=== PATIENT | female | born 1955 | race Caucasian/White ===

== ENCOUNTER 2017-06-18 17:41 | Inpatient (IN) | payer OTHER ==
[~2017-06-18] VITALS: Ht 162.6 cm; Wt 155.9 kg
[~2017-06-18 17:41] MED LIST: ACTOS45 MG PO; CEPHALEXIN500 M1 PO; CLEOCIN300 MG PO; DIOVAN HCT 31 TABLE1 PO; FOLIC ACID1 MG PO; GLIPIZIDE XL5 MG PO; LIPITOR80 MG PO; LISINOPRIL40 MG PO; METFORMIN HCL850 MG PO; NORVASC10 MG PO; NOVOLIN N100 UNIT/1 SC; NOVOLIN,HU100 UNITS/ SC; PRAVASTATIN PO; PRINIVIL40 MG PO; TYLENOL EXTRA500 MG PO; Tylenol Extra Streng PO; VANCOMYCIN100 MG/M1 IV
[2017-06-18 18:10] LABS: POINT-OF-CARE METER ID UU14100415
[2017-06-18 18:51] LABS: HEMATOCRIT 42.2 % (36.0-46.0); MCH 26.2 PG (29.0-34.0); MCV 84.4 FL (83-99); MEAN PLAT.VOLUME 10.8 uM^3 (9.5-12.4); PLATELET COUNT 172 K/uL (156-360); RBC DIS.WIDTH-CV 14.6 % (11.8-14.6); WHITE BLOOD COUNT 23.7 K/uL (4.1-10.2)
[2017-06-18 19:02] LABS: CHLORIDE 100 mEq/L (99-109); POTASSIUM 4.6 mEq/L (3.7-5.4); SODIUM 131 mEq/L (136-147)
[2017-06-18 19:03] LABS: GLUCOSE 230 mg/dL (70-99)
[2017-06-18 19:05] LABS: ANION GAP 11 MEQ/L (2-14)
[2017-06-18 19:07] LABS: GFR ESTIMATE (CALCULATED) 30 mL/min/
[2017-06-18 19:08] LABS: UREA NITROGEN (BUN) 34 mg/dL (9-23)
[2017-06-18 19:51] LABS: ADD MIUA? YES; BILIRUBIN NEGATIVE; BLOOD MODERATE; COLOR YELLOW ((YELLOW)); GLUCOSE (STRIP) 50; KETONES NEGATIVE; LEUKOCYTES NEGATIVE; NITRITE NEGATIVE; PROTEIN (STRIP) >=500; SPECIFIC GRAVITY 1.016 (1.000-1.030); UROBILINOGEN 0.2 MG/DL (0.2-1.0)
[2017-06-18 20:46] LABS: BACTERIA RARE /HPF; CASTS PRESENT /LPF; CRYSTALS PRESENT; EPITHELIAL CELLS 1+ /HPF; MUCUS NONE SEEN /LPF; RED BLOOD CELLS RARE /HPF (0-5); WHITE BLOOD CELLS RARE /HPF (0-5)
[2017-06-18 20:47] LABS: AMORPHOUS URATES CRYSTALS 3+; HYALINE CASTS 0-5 /LPF
[2017-06-18] MEDS ORDERED: GLUCOTROL XL5 MG PO (21:05)
[2017-06-19 00:26] VITALS: BP 175/74
[2017-06-19 02:58] LABS: METH RESISTANT S AUREUS PCR NEGATIVE (NEGATIVE)
[2017-06-19 03:06] LABS: PROBE CHECK PASS; SPECIMEN PROCESSING CONTROL PASS
[2017-06-19 04:03] VITALS: BP 135/63
[2017-06-19 06:23] LABS: POINT-OF-CARE METER ID UU14208750
[2017-06-19 07:06] LABS: HEMATOCRIT 31.2 % (36.0-46.0); MCH 26.6 PG (29.0-34.0); MCHC 31.1 G/DL (30.0-36.0); MCV 85.5 FL (83-99); MEAN PLAT.VOLUME 10.7 uM^3 (9.5-12.4); PLATELET COUNT 147 K/uL (156-360); RBC DIS.WIDTH-CV 14.8 % (11.8-14.6); RBC DIS.WIDTH-SD 46.2 % (39-53); WHITE BLOOD COUNT 19.5 K/uL (4.1-10.2)
[2017-06-19 07:08] LABS: RED BLOOD COUNT 3.65 M/uL (3.80-5.20)
[2017-06-19 07:27] LABS: ALKALINE PHOSPHATASE 79 IU/L (3-129); ANION GAP 8 MEQ/L (2-14); CHLORIDE 105 MEQ/L (99-109); GFR ESTIMATE (CALCULATED) 37 mL/min/; GLUCOSE 150 mg/dL (70-99); POTASSIUM 4.2 MEQ/L (3.7-5.4); SAMPLE HEMOLYSIS CHECK 0; SAMPLE ICTERIC CHECK 0; SAMPLE LIPEMIA CHECK 0; SODIUM 134 MEQ/L (136-147); TOTAL BILIRUBIN 0.6 MG/DL (0.0-1.0); UREA NITROGEN (BUN) 33 mg/dL (9-23)
[2017-06-19 07:56] VITALS: BP 165/70
[2017-06-19 11:39] VITALS: BP 104/51
[2017-06-19 12:06] LABS: POINT-OF-CARE METER ID UU14314084
[2017-06-19 19:00] VITALS: BP 148/65
[2017-06-19 22:00] LABS: POINT-OF-CARE METER ID UU14208750
[2017-06-19 23:35] LABS: POINT-OF-CARE METER ID UU14208750
[2017-06-19 23:45] VITALS: BP 128/60
[2017-06-20 00:34] LABS: POINT-OF-CARE METER ID UU14208750
[2017-06-20 06:49] LABS: POINT-OF-CARE METER ID UU14208750
[2017-06-20 07:51] LABS: HEMATOCRIT 27.9 % (36.0-46.0); MCH 26.2 PG (29.0-34.0); MCHC 30.5 G/DL (30.0-36.0); MCV 86.1 FL (83-99); MEAN PLAT.VOLUME 10.4 uM^3 (9.5-12.4); PLATELET COUNT 129 K/uL (156-360); RBC DIS.WIDTH-CV 14.9 % (11.8-14.6); RBC DIS.WIDTH-SD 47.3 % (39-53); RED BLOOD COUNT 3.24 M/uL (3.80-5.20); WHITE BLOOD COUNT 11.3 K/uL (4.1-10.2)
[2017-06-20 07:52] LABS: POINT-OF-CARE METER ID UU14208750
[2017-06-20 08:22] LABS: ALKALINE PHOSPHATASE 77 IU/L (3-129); ANION GAP 8 MEQ/L (2-14); CHLORIDE 103 MEQ/L (99-109); GFR ESTIMATE (CALCULATED) 35 mL/min/; POTASSIUM 3.8 MEQ/L (3.7-5.4); SAMPLE HEMOLYSIS CHECK 0; SAMPLE ICTERIC CHECK 0; SAMPLE LIPEMIA CHECK 0; SODIUM 132 MEQ/L (136-147); TOTAL BILIRUBIN 0.5 MG/DL (0.0-1.0); UREA NITROGEN (BUN) 32 mg/dL (9-23)
[2017-06-20 08:26] LABS: GLUCOSE 82 mg/dL (70-99)
[2017-06-20 09:02] VITALS: BP 130/76
[2017-06-20 09:38] LABS: POINT-OF-CARE METER ID UU14208750
[2017-06-20 11:26] LABS: POINT-OF-CARE METER ID UU14162508
[2017-06-20 15:55] VITALS: BP 132/72
[2017-06-20 16:28] LABS: POINT-OF-CARE METER ID UU14162508
[2017-06-20 21:40] LABS: POINT-OF-CARE METER ID UU14208750
[2017-06-20 23:45] VITALS: BP 135/70
[2017-06-21 05:46] LABS: CHLORIDE 109 mEq/L (99-109); POTASSIUM 4.3 mEq/L (3.7-5.4); SODIUM 135 mEq/L (136-147)
[2017-06-21 05:50] LABS: ANION GAP 7 MEQ/L (2-14); GLUCOSE 133 mg/dL (70-99); TOTAL BILIRUBIN 0.4 mg/dL (0.0-1.0)
[2017-06-21 05:52] LABS: ALKALINE PHOSPHATASE 107 IU/L (3-129); GFR ESTIMATE (CALCULATED) 44 mL/min/
[2017-06-21 05:53] LABS: UREA NITROGEN (BUN) 28 mg/dL (9-23)
[2017-06-21 05:57] LABS: HEMATOCRIT 28.9 % (36.0-46.0); MCH 26.5 PG (29.0-34.0); MCHC 31.1 G/DL (30.0-36.0); MCV 85.3 FL (83-99); MEAN PLAT.VOLUME 11.1 uM^3 (9.5-12.4); PLATELET COUNT 133 K/uL (156-360); RBC DIS.WIDTH-SD 46.5 % (39-53); RED BLOOD COUNT 3.39 M/uL (3.80-5.20); WHITE BLOOD COUNT 9.9 K/uL (4.1-10.2)
[2017-06-21 06:41] LABS: POINT-OF-CARE METER ID UU14208750
[2017-06-21 07:42] VITALS: BP 136/66
[2017-06-21 11:57] LABS: POINT-OF-CARE METER ID UU14162508
[2017-06-21 16:15] VITALS: BP 142/61
[2017-06-21 16:30] LABS: POINT-OF-CARE METER ID UU14162508
[2017-06-21 21:41] LABS: POINT-OF-CARE METER ID UU14208750
[2017-06-21 23:47] VITALS: BP 140/65
[2017-06-22 06:47] LABS: POINT-OF-CARE METER ID UU14162508
[2017-06-22 07:05] LABS: HEMATOCRIT 28.9 % (36.0-46.0); MCH 26.7 PG (29.0-34.0); MCHC 31.5 G/DL (30.0-36.0); MCV 84.8 FL (83-99); MEAN PLAT.VOLUME 11.7 uM^3 (9.5-12.4); PLATELET COUNT 144 K/uL (156-360); RBC DIS.WIDTH-SD 46.3 % (39-53); RED BLOOD COUNT 3.41 M/uL (3.80-5.20)
[2017-06-22 07:37] VITALS: BP 159/68
[2017-06-22 07:38] LABS: ANION GAP 11 MEQ/L (2-14); CHLORIDE 106 MEQ/L (99-109); GFR ESTIMATE (CALCULATED) 48 mL/min/; POTASSIUM 4.3 MEQ/L (3.7-5.4); SAMPLE HEMOLYSIS CHECK 0; SAMPLE ICTERIC CHECK 0; SAMPLE LIPEMIA CHECK 0; SODIUM 137 MEQ/L (136-147); TOTAL BILIRUBIN 0.4 MG/DL (0.0-1.0); UREA NITROGEN (BUN) 25 mg/dL (9-23)
[2017-06-22 07:39] LABS: ALKALINE PHOSPHATASE 110 IU/L (3-129); GLUCOSE 204 mg/dL (70-99)
[2017-06-22 11:29] LABS: POINT-OF-CARE METER ID UU14162508
[2017-06-22 15:37] VITALS: BP 150/65
[2017-06-22 17:10] LABS: POINT-OF-CARE METER ID UU14162508
[2017-06-23 00:21] VITALS: BP 157/70
[2017-06-23 07:56] LABS: HEMATOCRIT 31.8 % (36.0-46.0); MCH 27.3 PG (29.0-34.0); MCHC 32.1 G/DL (30.0-36.0); MCV 85.3 FL (83-99); MEAN PLAT.VOLUME 11.1 uM^3 (9.5-12.4); RBC DIS.WIDTH-CV 14.8 % (11.8-14.6); RBC DIS.WIDTH-SD 45.9 % (39-53); RED BLOOD COUNT 3.73 M/uL (3.80-5.20); WHITE BLOOD COUNT 10.6 K/uL (4.1-10.2)
[2017-06-23 08:25] LABS: ALKALINE PHOSPHATASE 129 IU/L (3-129); ANION GAP 11 MEQ/L (2-14); CHLORIDE 106 MEQ/L (99-109); GFR ESTIMATE (CALCULATED) > 59 mL/min/; GLUCOSE 153 mg/dL (70-99); POTASSIUM 4.2 MEQ/L (3.7-5.4); SAMPLE HEMOLYSIS CHECK 0; SAMPLE ICTERIC CHECK 0; SAMPLE LIPEMIA CHECK 0; SODIUM 138 MEQ/L (136-147); TOTAL BILIRUBIN 0.5 MG/DL (0.0-1.0); UREA NITROGEN (BUN) 22 mg/dL (9-23)
[2017-06-23 08:29] LABS: PLATELET COUNT 205 K/uL (156-360)
[2017-06-23 09:08] VITALS: BP 132/67
[2017-06-23 11:48] LABS: POINT-OF-CARE METER ID UU14208750
[2017-06-23 15:26] VITALS: BP 134/61
[2017-06-23 16:54] LABS: POINT-OF-CARE METER ID UU14208750
[2017-06-23 22:04] LABS: POINT-OF-CARE METER ID UU14162508
[2017-06-23 23:11] VITALS: BP 158/872
[2017-06-24 07:30] LABS: HEMATOCRIT 28.3 % (36.0-46.0); MCH 26.1 PG (29.0-34.0); MCHC 30.7 G/DL (30.0-36.0); MEAN PLAT.VOLUME 10.5 uM^3 (9.5-12.4); PLATELET COUNT 226 K/uL (156-360); RBC DIS.WIDTH-CV 14.6 % (11.8-14.6); RBC DIS.WIDTH-SD 45.5 % (39-53); RED BLOOD COUNT 3.33 M/uL (3.80-5.20); WHITE BLOOD COUNT 11.3 K/uL (4.1-10.2)
[2017-06-24 07:52] LABS: ALKALINE PHOSPHATASE 116 IU/L (3-129); ANION GAP 7 MEQ/L (2-14); CHLORIDE 107 MEQ/L (99-109); GFR ESTIMATE (CALCULATED) > 59 mL/min/; GLUCOSE 155 mg/dL (70-99); POTASSIUM 4.5 MEQ/L (3.7-5.4); SAMPLE HEMOLYSIS CHECK 0; SAMPLE ICTERIC CHECK 0; SAMPLE LIPEMIA CHECK 0; SODIUM 139 MEQ/L (136-147); TOTAL BILIRUBIN 0.4 MG/DL (0.0-1.0); UREA NITROGEN (BUN) 23 mg/dL (9-23)
[2017-06-24 08:00] VITALS: BP 151/65
[2017-06-24 08:40] LABS: POINT-OF-CARE METER ID UU14162508
[2017-06-24 11:23] LABS: POINT-OF-CARE METER ID UU14208750
[2017-06-24 16:00] VITALS: BP 147/83
[2017-06-24 17:05] LABS: POINT-OF-CARE METER ID UU14208750
[2017-06-24 22:07] LABS: POINT-OF-CARE METER ID UU14208750
[2017-06-24 23:17] VITALS: BP 158/68
[2017-06-25 06:27] LABS: POINT-OF-CARE METER ID UU14208750
[2017-06-25 07:45] VITALS: BP 140/64
[2017-06-25 12:11] LABS: POINT-OF-CARE METER ID UU14208750
[2017-06-25 16:43] LABS: POINT-OF-CARE METER ID UU14208750
== END 2017-06-25 17:13 | disposition home or self-care (01) | DRG 603 ==
LOC: EME 17:41 → 2EASTP 21:49 → EDOF 21:49 → ENRESERV 21:51 → 2EASTP 23:06 → 2EAST 06-19 16:50
PROVIDERS: Emergency Medicine; Internal Medicine
DX: L03.115 Cellulitis of right lower limb (principal); J45.909 Unspecified asthma, uncomplicated; I12.9 Hypertensive chronic kidney disease with stage 1 through stage 4 chronic kidney disease, or unspecified chronic kidney disease; E11.22 Type 2 diabetes mellitus with diabetic chronic kidney disease; D64.9 Anemia, unspecified; I87.8 Other specified disorders of veins; N18.9 Chronic kidney disease, unspecified; E78.5 Hyperlipidemia, unspecified; E66.01 Morbid (severe) obesity due to excess calories; I87.2 Venous insufficiency (chronic) (peripheral); E11.649 Type 2 diabetes mellitus with hypoglycemia without coma; I83.219 Varicose veins of right lower extremity with both ulcer of unspecified site and inflammation; L97.919 Non-pressure chronic ulcer of unspecified part of right lower leg with unspecified severity; N28.9 Disorder of kidney and ureter, unspecified; Z82.49 Family history of ischemic heart disease and other diseases of the circulatory system; Z68.43 Body mass index [BMI] 50.0-59.9, adult; Z91.19 Patient's noncompliance with other medical treatment and regimen
CPT/HCPCS: 36600; 71020; 73630; 80048; 80053; 81003; 82803; 82948; 83605; 85027; 87040; 87641; 94640; 99281; 99285; J0690; J0692; J0696; J1644; J1815; J2543; J3370; J7030; J7040; J7050